=== PATIENT | male | born 1995 | race African-American/Black ===

== ENCOUNTER 2017-07-31 06:09 | Emergency (ER) | payer SELFPAY ==
--- NOTE | 2017-07-31 06:51 | RADIOLOGY REPORT (SQ) ---
EXAM DESCRIPTION: CHEST PA/LAT COMPLETED DATE/TIME: 07/31/2017 6:31 am REASON FOR STUDY: trouble breathing COMPARISON: None. EXAM PARAMETERS: NUMBER OF VIEWS: two views TECHNIQUE: Digital Frontal and Lateral radiographic views of the chest acquired. RADIATION DOSE: NA LIMITATIONS: none FINDINGS: LUNGS AND PLEURA: No opacities, masses or pneumothorax. No pleural effusion. MEDIASTINUM AND HILAR STRUCTURES: No masses or contour abnormalities. HEART AND VASCULAR STRUCTURES: Heart normal size. No evidence for failure. BONES: No acute findings. HARDWARE: None in the chest. OTHER: No other significant finding. IMPRESSION: NO SIGNIFICANT RADIOGRAPHIC FINDING IN THE CHEST. TECHNICAL DOCUMENTATION: JOB ID: [id number] [employer]- All Rights Reserved
[2017-07-31] MEDS ORDERED: ALBUTEROL SULFATE 0.083% NEB 2.5 MG/3 ML AMPUL NEB ONE (07:57)
--- NOTE | 2017-07-31 07:57 | ER Document Report ---
ED Respiratory Problem - General Chief Complaint: Chest Congestion Stated Complaint: TROUBLE BREATHING Time Seen by Provider: 07/31/17 07:21 Mode of Arrival: Ambulatory Information source: Patient Notes: Patient is a 21-year-old male who presents to the ER today for shortness of breath 3 months worsened last night. Patient smokes marijuana frequently and is unsure if that is causing his shortness of breath. He admits to some coughing as well but states that his not very often and nonproductive. Patient denies any fever, chills, runny nose, sinus pressure or other symptoms. TRAVEL OUTSIDE OF THE [place] IN LAST 30 DAYS: No - Related Data Allergies/Adverse Reactions: No Known Allergies Allergy (Unverified 07/31/17 06:12) Home Medications: Current Home Medications No Home Medications 07/31/17 [History] Past Medical History - General Information source: Patient - Social History Smoking Status: Never Smoker Chew tobacco use (# tins/day): No Frequency of alcohol use: None Drug Abuse: Marijuana Family History: Reviewed & Not Pertinent Patient has suicidal ideation: No Patient has homicidal ideation: No Renal/ Medical History: Denies: Hx Peritoneal Dialysis Review of Systems - Review of Systems Constitutional: No symptoms reported EENT: No symptoms reported Cardiovascular: No symptoms reported Respiratory: See HPI Gastrointestinal: No symptoms reported Genitourinary: No symptoms reported Male Genitourinary: No symptoms reported Musculoskeletal: No symptoms reported Skin: No symptoms reported Hematologic/Lymphatic: No symptoms reported Neurological/Psychological: No symptoms reported Physical Exam - Vital signs Vitals: Temp Pulse Resp BP Pulse Ox 98.4 F 80 18 156/83 H 100 07/31/17 06:14 07/31/17 06:14 07/31/17 06:14 07/31/17 06:14 07/31/17 06:14 - Notes Notes: PHYSICAL EXAMINATION: GENERAL: Well-appearing and in no acute distress. HEAD: Atraumatic, normocephalic. EYES: Pupils equal round and reactive to light, extraocular movements intact, sclera anicteric, conjunctiva are normal. ENT: ear canals without erythema or foreign body, TMs pearly langley with good bony landmarks, nares patent, oropharynx clear without exudates. Moist mucous membranes. NECK: Normal range of motion, supple without lymphadenopathy LUNGS: CTAB and equal. No wheezes rales or rhonchi. HEART: Regular rate and rhythm without murmurs ABDOMEN: Soft, no tenderness. No guarding, no rebound BACK: no vertebral tenderness, normal ROM GI/: no CVA tenderness EXTREMITIES: Normal range of motion, no pitting edema. No cyanosis. NEUROLOGICAL: Cranial nerves grossly intact. Normal sensory/motor exams. PSYCH: Normal mood, normal affect. SKIN: Warm, Dry, normal turgor, no rashes or lesions noted Course - Re-evaluation Re-evalutation: 07/31/17 08:24 Patient will go home with albuterol inhaler as he states that breathing treatment here did help his symptoms. chest. X-ray negative today vitals are all stable. - Vital Signs Vital signs: Temp Pulse Resp BP Pulse Ox 97.5 F 73 18 148/67 H 100 07/31/17 08:36 07/31/17 08:36 07/31/17 08:36 07/31/17 08:36 07/31/17 08:36 Discharge - Discharge Clinical Impression: Shortness of breath Condition: Stable Disposition: HOME, SELF-CARE Additional Instructions: Return immediately for any new or worsening symptoms. Follow up with primary care provider, call tomorrow to make followup appointment. Referrals: MAGDA FAIRBANKS MD [Primary Care Provider] - Follow up as needed
[2017-07-31] MEDS ORDERED: ALBUTEROL SULFATE HFA (90 MCG/PUFF) 8 GM MDI (1 MDI/ER DISP) IH PRN (08:25)
[2017-07-31 08:39] VITALS: BP 148/67
== END 2017-07-31 08:39 | disposition home or self-care (01) ==
LOC: ER 06:09
DX: R06.02 Shortness of breath (principal); R09.89 Other specified symptoms and signs involving the circulatory and respiratory systems; R05 Cough
CPT/HCPCS: 94640; 99285; 71020; J3490